=== PATIENT | male | born 1980 | race Caucasian/White ===

== ENCOUNTER 2018-06-20 13:55 | Outpatient (CLI) | payer OTHER | END 2018-06-20 13:59 | disposition home or self-care (01) | LOC: SONOGRAMA 13:55 | DX: N46.11 Organic oligospermia (principal); I86.1 Scrotal varices ==

== ENCOUNTER 2018-08-12 05:55 | Day surgery (SDC) | payer OTHER ==
[~2018-08-12 05:55] MED LIST: MULTIVITAMINS1 EAC9 PO
== END 2018-08-12 11:50 | disposition home or self-care (01) ==
LOC: CIR.AMB 05:55
DX: I86.1 Scrotal varices (principal)

== ENCOUNTER 2018-08-22 19:07 | Outpatient (CLI) | payer OTHER | END 2018-08-22 19:26 | disposition home or self-care (01) | LOC: LAB 19:07 | DX: L02.214 Cutaneous abscess of groin (principal) ==

== ENCOUNTER 2020-08-14 08:16 | Outpatient (CLI) | payer OTHER | END 2020-08-14 08:23 | disposition home or self-care (01) | LOC: NUCLEAR 08:16 | PROVIDERS: ATTEND Internal Medicine | DX: I10 Essential (primary) hypertension (principal); I20.9 Angina pectoris, unspecified ==

== ENCOUNTER 2020-08-14 08:26 | Outpatient (CLI) | payer OTHER | END 2020-08-14 08:31 | disposition home or self-care (01) | LOC: RAD 08:26 | PROVIDERS: ATTEND Internal Medicine | DX: J44.9 Chronic obstructive pulmonary disease, unspecified (principal) ==

== ENCOUNTER 2020-08-14 10:37 | Outpatient (CLI) | payer OTHER | END 2020-08-14 18:00 | disposition home or self-care (01) | LOC: LAB 10:37 | PROVIDERS: ATTEND Internal Medicine | DX: D50.0 Iron deficiency anemia secondary to blood loss (chronic) (principal); E11.9 Type 2 diabetes mellitus without complications; E78.2 Mixed hyperlipidemia; E03.5 Myxedema coma; E55.9 Vitamin D deficiency, unspecified; N40.0 Benign prostatic hyperplasia without lower urinary tract symptoms; N39.0 Urinary tract infection, site not specified ==

== ENCOUNTER 2021-12-22 10:01 | Outpatient (CLI) | payer OTHER | END 2021-12-22 10:11 | disposition home or self-care (01) | LOC: PPH VACUNA 10:01 | PROVIDERS: ATTEND Emergency Medicine Pediatric Emergency Medicine | DX: Z23 Encounter for immunization (principal) ==